=== PATIENT | male | born 1990 | race Caucasian/White ===

== ENCOUNTER 2017-06-06 19:28 | Emergency (ER) | payer SELFPAY ==
[2017-06-06] MEDS ORDERED: XYLOCAINE 1% MPF 5 mL INFILTRATI ONE (22:15)
[2017-06-06] MEDS ORDERED: BOOSTRIX IM ONE (22:15)
--- NOTE | 2017-06-06 22:42 | Emergency Department Report ---
- General Chief Complaint: Wound/Laceration Stated Complaint: LT ARM LAC Time Seen by Provider: 06/06/17 22:14 Source: patient Mode of arrival: Ambulatory Limitations: Language Barrier - History of Present Illness Initial Comments: pt is a 27 y/o [place]ish speaking male , pt refuses rn call center services , wishes to use brother as rn call center as he do not like using the phone, pt presents for lfa lacaration , as "I cut my arm cutting sheet rock today", bleeding control with self applied direct pressure, pt denies numbness no tingling no loss of use. Onset/Timin -: hour(s) Location: other (left forearm ) Extremity Location: Left: Forearm (laceration less than1 cm ) 1 - forearm laceration less than 1 cm bleeding controled no nerve or muscle involvement Place: work Patient Tetanus UTD: No Context: accidental, sharp object use Associated Symptoms: pain. denies: loss of feeling/numbness, suspect foreign body present, unable to move injured part, weakness followed by dizziness, nausea/vomiting, fever - Related Data Previous Rx's Medication Instructions Recorded Last Taken Type Naproxen [Naprosyn TAB] 500 mg PO BID #30 tablet 06/06/17 Unknown Rx Allergies Allergy/AdvReac Type Severity Reaction Status Date / Time No Known Allergies Allergy Unverified 06/06/17 19:39 ED Review of Systems ROS: Stated complaint: LT ARM LAC Other details as noted in HPI Constitutional: denies: chills, fever Eyes: denies: eye pain, eye discharge, vision change ENT: denies: ear pain, throat pain Respiratory: denies: cough, shortness of breath, wheezing Cardiovascular: denies: chest pain, palpitations Endocrine: no symptoms reported Gastrointestinal: denies: abdominal pain, nausea, diarrhea Genitourinary: as per HPI Musculoskeletal: denies: back pain, joint swelling, arthralgia Skin: other (laceration left anterior forearm ) Neurological: denies: headache, weakness, numbness, paresthesias Psychiatric: denies: anxiety, depression Hematological/Lymphatic: denies: easy bleeding, easy bruising ED Past Medical Hx - Past Medical History Previous Medical History?: No - Surgical History Past Surgical History?: No - Social History Smoking Status: Never Smoker Substance Use Type: Alcohol - Medications Home Medications: Home Medications Medication Instructions Recorded Confirmed Last Taken Type Naproxen [Naprosyn TAB] 500 mg PO BID #30 tablet 06/06/17 Unknown Rx ED Physical Exam - General Limitations: Language Barrier General appearance: alert, in no apparent distress - Head Head exam: Present: atraumatic, normocephalic - Eye Eye exam: Present: normal appearance - ENT ENT exam: Present: mucous membranes moist - Neck Neck exam: Present: normal inspection - Respiratory Respiratory exam: Present: normal lung sounds bilaterally. Absent: respiratory distress - Cardiovascular Cardiovascular Exam: Present: regular rate, normal rhythm. Absent: systolic murmur, diastolic murmur, rubs, gallop - GI/Abdominal GI/Abdominal exam: Present: soft, normal bowel sounds - Rectal Rectal exam: Present: deferred - Extremities Exam Extremities exam: Present: normal inspection, full ROM, tenderness, normal capillary refill. Absent: pedal edema, joint swelling, calf tenderness - Expanded Upper Extremity Exam Left Forearm Wrist exam: Present: full ROM, laceration. Absent: tenderness, ecchymosis, deformity, crepidus, dislocation, erythema, tenderness over anatomical snuff box, pain with axial thumb loading Hand Wrist exam: Present: normal inspection, full ROM. Absent: tenderness, swelling, abrasion, laceration, ecchymosis, deformity, crepidus, dislocation, erythema, amputation, nail avulsion, subungual hematoma Neuro motor exam: Present: wrist extension intact, thumb opposition intact, thumb IP flexion intact, thumb adduction intact, fingers 2-5 abduction intact Neurosensory exam: Present: 2-point discrimination, radial nerve intact, ulnar nerve intact, median nerve intact Vascular: Present: normal capillary refill, radial pulse, brachial pulse, ulnar pulse. Absent: vascular compromise, Pallo, pulse deficit radial art, pulse deficit ulnar art, pulse deficit brachial art - Back Exam Back exam: Present: normal inspection, full ROM - Neurological Exam Neurological exam: Present: alert, oriented X3, normal gait, reflexes normal. Absent: motor sensory deficit - Expanded Neurological Exam Expanded Patient oriented to: Present: person, place, time Speech: Present: fluid speech Sensory exam: Upper Extremity Light Touch: Normal, Upper Extremity Pin Prick: Normal, Upper Extremity Temperature: Normal, UE 2 Point Discrimination: Normal, Lower Extremity Light Touch: Normal, Lower Extremity Pin Prick: Normal, Lower Extremity Temperature: Normal, LE 2 Point Discrimination: Normal Motor strength exam: RUE: 5, LUE: 5, RLE: 5, LLE: 5 DTR: bicep (R): 2+, bicep (L): 2+, tricep (R): 2+, tricep (L): 2+, knee (R): 2+ , knee (L): 2+, ankle (R): 2+ Best Eye Response (Vincent): (4) open spontaneously Best Motor Response (Methow): (6) obeys commands Best Verbal Response ([place]): (5) oriented Vincent Total: 15 - Psychiatric Psychiatric exam: Present: normal affect, normal mood - Skin Skin exam: Present: warm, dry, normal color, other (lfa laceration as above ). Absent: rash ED Course Vital Signs 06/06/17 19:36 Temperature 98.7 F Pulse Rate 89 Blood Pressure 121/89 O2 Sat by Pulse 100 Oximetry - Laceration /Wound Repair Left Anterior Arm Wound Location: upper extremity Wound Length (cm): 1 (less than 1 cm ) Wound's Depth, Shape: superficial Wound Explored: clean Irrigated w/ Saline (ccs): 30 Betadine Prep?: Yes Anesthesia: 1% Lidocaine Volume Anesthetic (ccs): 2 Wound Debrided: minimal Wound Repaired With: sutures Suture Size/Type: 4:0, proline Number of Sutures: 3 Layer Closure?: No Sterile Dressing Applied?: Yes Progress: left fore laceration less than 1 cm , area cleane with betadine solution, anesthesia with lidocaine 1 % plain, irrigated with ns 30 cc, wound clean no foreign body to exoploration, wound closed with 4. 0 prolyne x 3 sutures, all bleeding controlled pt given wound care instructions pt verbalized agreement and understanding with same TDap IM at this time, steril dressing applied, pt tolerated procedure with minimal distress. ED Medical Decision Making - Medical Decision Making pt is a 27 y/o [place]ish speaking male , pt refuses rn call center services , wishes to use brother as rn call center as he do not like using the phone, pt presents for lfa lacaration , as "I cut my arm cutting sheet rock today", bleeding control with self applied direct pressure, pt denies numbness no tingling no loss of use. laceration repair see procedure note, all bleeding controlled, pt given suture care instructions and tdap, will dc with bacitracin oint, pain rx prn, there is no no muscle, tendon, or nerve involve involvment, left upper arm rom intact qc manager equal bilat strength 5/5 bilat no weaknes no numbness no tingling , towel hemmer <3 sec pt will follow up with emergency department in 7-10 days for suture removal Critical care attestation.: If time is entered above; I have spent that time in minutes in the direct care of this critically ill patient, excluding procedure time. ED Disposition Clinical Impression: Laceration of forearm, left Qualifiers: Encounter type: initial encounter Qualified Code(s): S51.812A - Laceration without foreign body of left forearm, initial encounter Disposition: DC-01 TO HOME OR SELFCARE Is pt being admited?: No Does the pt Need Aspirin: No Condition: Good Instructions: Laceration (ED) Prescriptions: Naproxen [Naprosyn TAB] 500 mg PO BID #30 tablet Referrals: PRIMARY CARE, [Primary Care Provider] - 3-5 Days Forms: Work/School Release Form(ED) Time of Disposition: 22:57
[2017-06-06 23:29] VITALS: BP 126/88
== END 2017-06-06 23:15 | disposition home or self-care (01) ==
LOC: ED 19:28
DX: S51.812A Laceration without foreign body of left forearm, initial encounter (principal); W45.8XXA Other foreign body or object entering through skin, initial encounter; Y93.9 Activity, unspecified; Y92.9 Unspecified place or not applicable; Y99.9 Unspecified external cause status
CPT/HCPCS: 90471; 90715